=== PATIENT | female | born 1945 | race Caucasian/White ===

== ENCOUNTER → 2017-01-02 | Outpatient (CLI) | payer MEDICARE, OTHER ==
[~2017-01-02] MED LIST: ACYC400T4 PO; ALLO300T PO; ALPR0.5T6 PO; AMLO5TAB2 PO; ASCO500T8 PO; ASPI325T17 PO; CHOL200074 PO; DIAZ5TAB4 PO; DULO60CA7 PO; ENOX40SY4 SQ; HYDR-3237 PO; HYDR2TAB29 PO; LEVO750T26 PO; MAGN400O7 PO; MAGNESIUM SUPPLEMENT PEG; METR500T PO; NIAC100T3 PO; NIAC500T4 PO; OXYC-307 PO; OXYC15TA60 PO; OXYGEN INH; PREG150C PO; PROP80TA PO; SULF1TAB24 PO; ZOLP10TA5 PO; will bring list
== END | disposition home or self-care (01) ==
LOC: CFH 10:37
PROVIDERS: ATTEND Nurse Practitioner Family
DX: Z12.31 Encounter for screening mammogram for malignant neoplasm of breast (principal)
CPT/HCPCS: G0202

== ENCOUNTER → 2017-01-03 | Outpatient (CLI) | payer MEDICARE, OTHER | END | disposition home or self-care (01) | LOC: CFH 12:00 | PROVIDERS: ATTEND Nurse Practitioner Family | DX: Z13.820 Encounter for screening for osteoporosis (principal); M81.0 Age-related osteoporosis without current pathological fracture | CPT/HCPCS: 77080 ==

== ENCOUNTER → 2017-02-06 | Outpatient (CLI) | payer MEDICARE, OTHER ==
[~2017-02-06] MED LIST changes: +AMINOPHYLLINE 25 MG/ML, 10ML ONE; +REGADENOSON 0.4 MG/5 ML SYRINGE ONE
== END | disposition home or self-care (01) ==
LOC: CFH 07:15
PROVIDERS: ATTEND Internal Medicine Cardiovascular Disease
DX: I08.3 Combined rheumatic disorders of mitral, aortic and tricuspid valves (principal); I10 Essential (primary) hypertension
CPT/HCPCS: 78452; 93017; 93306; A9502; J0280; J2785

== ENCOUNTER 2017-09-07 16:16 | Inpatient (IN) | payer MEDICARE, OTHER ==
[~2017-09-07] VITALS: Ht 162.6 cm; Wt 97.4 kg
[~2017-09-07 16:16] MED LIST changes: -AMINOPHYLLINE 25 MG/ML, 10ML ONE; -REGADENOSON 0.4 MG/5 ML SYRINGE ONE
[2017-09-07 16:54] LABS: BASOPHILS # (AUTO) 0.04 x10^3/uL (0-0.1); BASOPHILS % (AUTO) 0 % (0-1); EOSINOPHILS # (AUTO) 0.07 x10^3/uL (0-0.4); EOSINOPHILS % (AUTO) 1 % (1-7); LYMPHOCYTES # (AUTO) 2.37 x10^3/uL (1-3.4); LYMPHOCYTES % (AUTO) 17 % (22-44); MD NO; MEAN CORPUSCULAR HEMOGLOBIN 29.2 pg (27.0-34.8); MEAN CORPUSCULAR HGB CONC 33.4 g/dL (32.4-35.8); MEAN CORPUSCULAR VOLUME 87.4 fL (80-100); MEAN PLATELET VOLUME 8.1 fL (7.4-10.4); MONOCYTES # (AUTO) 0.84 x10^3/uL (0.2-0.8); MONOCYTES % (AUTO) 6 % (2-9); NEUTROPHILS # (AUTO) 10.48 x10^3/uL (1.8-6.8); NEUTROPHILS % (AUTO) 76 % (42-75); PLATELET COUNT 294 x10^3/uL (130-400); RED BLOOD COUNT 5.58 x10^6/uL (3.82-5.3); RED CELL DISTRIBUTION WIDTH 14.4 % (9.6-15.2)
[2017-09-07] MEDS ORDERED: LIDOCAINE-MPF 1%, 5ML ONE (17:39)
[2017-09-07] MEDS ORDERED: SODIUM CHLORIDE FLUSH 10ML SYR IVF ONE (18:30)
[2017-09-07 18:54] LABS: ALANINE AMINOTRANSFERASE 20 U/L (12-78); ALBUMIN 3.8 g/dL (3.4-5.0); ANION GAP 10 mmol/L (5-15); CALCIUM 9.9 mg/dL (8.5-10.1); CHLORIDE 106 mmol/L (98-107); CREATININE 1.36 mg/dL (0.55-1.02)
[2017-09-07 18:56] LABS: ALKALINE PHOSPHATASE 86 U/L (45-117); BILIRUBIN,TOTAL 0.6 mg/dL (0.2-1.0); TOTAL PROTEIN 8.1 g/dL (6.4-8.2)
[2017-09-07] MEDS ORDERED: OXYcodone/APAP 5/325MG TABLET PO ONE (19:30)
[2017-09-07] MEDS ORDERED: NIAC500T10 PO (19:38)
[2017-09-07] MEDS ORDERED: CHOL200024 PO (19:38)
[2017-09-07] MEDS ORDERED: POLYETHYLENE GLYCOL 17 GM PACKET PO PRN (20:00)
[2017-09-07] MEDS ORDERED: LABETALOL 5MG/ML, 20ML IVPush PRN (20:00)
[2017-09-07] MEDS ORDERED: FENTANYL PF 100 MCG/2ML IVPush PRN (20:00)
[2017-09-07] MEDS ORDERED: DOCUSATE 100 MG CAPSULE PO PRN (20:00)
[2017-09-07] MEDS ORDERED: BISACODYL 10 MG SUPP PR PRN (20:00)
[2017-09-07] MEDS ORDERED: ONDANSETRON 2MG/ML, 2ML IVPush PRN (20:00)
[2017-09-07 20:04] LABS: HCT (SEDRATE) 48.8 % (34.6-47.8)
[2017-09-07] MEDS ORDERED: OXYcodone/APAP 5/325MG TABLET ONE (20:10)
[2017-09-07 21:30] VITALS: BP 137/85
[2017-09-07] MEDS: ALLOPURINOL 300 MG TABLET PO SCH (22:13)
[2017-09-07] MEDS: SODIUM CHLORIDE FLUSH 10ML SYR IVF SCH (22:14)
[2017-09-08] MEDS: ACETAMINOPHEN 325 MG TABLET PO PRN ×4 (00:22→21:59)
[2017-09-08 02:25] VITALS: BP 104/67
[2017-09-08 05:29] LABS: BASOPHILS # (AUTO) 0.15 x10^3/uL (0-0.1); BASOPHILS % (AUTO) 1 % (0-1); EOSINOPHILS # (AUTO) 0.12 x10^3/uL (0-0.4); EOSINOPHILS % (AUTO) 1 % (1-7); LYMPHOCYTES # (AUTO) 3.56 x10^3/uL (1-3.4); LYMPHOCYTES % (AUTO) 27 % (22-44); MD NO; MEAN CORPUSCULAR HEMOGLOBIN 28.8 pg (27.0-34.8); MEAN CORPUSCULAR HGB CONC 32.9 g/dL (32.4-35.8); MEAN CORPUSCULAR VOLUME 87.4 fL (80-100); MONOCYTES # (AUTO) 1.08 x10^3/uL (0.2-0.8); MONOCYTES % (AUTO) 8 % (2-9); NEUTROPHILS # (AUTO) 8.39 x10^3/uL (1.8-6.8); NEUTROPHILS % (AUTO) 63 % (42-75); PLATELET COUNT 268 x10^3/uL (130-400); RED BLOOD COUNT 5.09 x10^6/uL (3.82-5.3); RED CELL DISTRIBUTION WIDTH 14.4 % (9.6-15.2)
[2017-09-08 05:41] LABS: ANION GAP 6 mmol/L (5-15); CALCIUM 9.1 mg/dL (8.5-10.1); CHLORIDE 105 mmol/L (98-107)
[2017-09-08 05:44] LABS: CREATININE 1.05 mg/dL (0.55-1.02)
[2017-09-08 07:26] VITALS: BP 147/87
[2017-09-08 08:07] LABS: MICROSCOPIC AUTO
[2017-09-08] MEDS: CHOLECALCIFEROL 1,000 UNIT TABLET PO SCH (10:20)
[2017-09-08] MEDS: PROPRANOLOL 40 MG TABLET PO SCH (10:21)
[2017-09-08] MEDS: NIACIN 500 MG TABLET.ER PO SCH (10:21)
[2017-09-08] MEDS: AMLODIPINE 5 MG TABLET PO SCH (10:21)
[2017-09-08] MEDS: SODIUM CHLORIDE FLUSH 10ML SYR IVF SCH ×2 (10:21→21:59)
[2017-09-08] MEDS ORDERED: PHENAZOPYRIDINE 200 MG TABLET PO PRN (11:30)
[2017-09-08 12:14] LABS: HEMOGLOBIN A1C 6.1 % (4.2-6.3)
[2017-09-08] MEDS: CEFDINIR 300 MG CAPSULE PO SCH ×2 (12:33→21:59)
[2017-09-08] MEDS: TAMSULOSIN 0.4 MG CAP.ER.24H PO SCH (12:33)
[2017-09-08 13:44] VITALS: BP 105/69
[2017-09-08 19:22] VITALS: BP 113/62
[2017-09-08] MEDS ORDERED: 0.9126SP NAS (21:51)
[2017-09-08] MEDS ORDERED: CYCL1DRO EACHEYE (21:51)
[2017-09-08] MEDS: ALLOPURINOL 300 MG TABLET PO SCH (21:58)
[2017-09-09 03:37] VITALS: BP 99/68
[2017-09-09 04:06] VITALS: BP 114/70
[2017-09-09 07:20] VITALS: BP 94/62
[2017-09-09 09:17] LABS: BASOPHILS # (AUTO) 0.05 x10^3/uL (0-0.1); BASOPHILS % (AUTO) 0 % (0-1); EOSINOPHILS # (AUTO) 0.08 x10^3/uL (0-0.4); EOSINOPHILS % (AUTO) 1 % (1-7); LYMPHOCYTES # (AUTO) 2.86 x10^3/uL (1-3.4); LYMPHOCYTES % (AUTO) 24 % (22-44); MD NO; MEAN CORPUSCULAR HEMOGLOBIN 28.9 pg (27.0-34.8); MEAN CORPUSCULAR HGB CONC 33.1 g/dL (32.4-35.8); MEAN CORPUSCULAR VOLUME 87.3 fL (80-100); MONOCYTES # (AUTO) 1.04 x10^3/uL (0.2-0.8); MONOCYTES % (AUTO) 9 % (2-9); NEUTROPHILS # (AUTO) 8.02 x10^3/uL (1.8-6.8); NEUTROPHILS % (AUTO) 67 % (42-75); PLATELET COUNT 255 x10^3/uL (130-400); RED BLOOD COUNT 4.91 x10^6/uL (3.82-5.3); RED CELL DISTRIBUTION WIDTH 14.7 % (9.6-15.2)
[2017-09-09 09:26] LABS: ANION GAP 7 mmol/L (5-15); CALCIUM 8.6 mg/dL (8.5-10.1); CHLORIDE 103 mmol/L (98-107); CREATININE 0.99 mg/dL (0.55-1.02)
[2017-09-09] MEDS: AMLODIPINE 5 MG TABLET PO SCH (09:41)
[2017-09-09] MEDS: SODIUM CHLORIDE FLUSH 10ML SYR IVF SCH ×2 (09:41→22:21)
[2017-09-09] MEDS: NIACIN 500 MG TABLET.ER PO SCH (09:41)
[2017-09-09] MEDS: CHOLECALCIFEROL 1,000 UNIT TABLET PO SCH (09:41)
[2017-09-09] MEDS: CEFDINIR 300 MG CAPSULE PO SCH ×2 (09:41→22:19)
[2017-09-09] MEDS: TAMSULOSIN 0.4 MG CAP.ER.24H PO SCH (09:41)
[2017-09-09] MEDS: PROPRANOLOL 40 MG TABLET PO SCH (09:41)
[2017-09-09] MEDS ORDERED: POTASSIUM CHLORIDE 20 MEQ TAB.ER.PRT PO ONE (10:00)
[2017-09-09 13:08] VITALS: BP 99/71
[2017-09-09 20:02] VITALS: BP 103/70
[2017-09-09] MEDS: ALLOPURINOL 300 MG TABLET PO SCH (22:19)
[2017-09-10] VITALS (11 sets, daily range): BP systolic 79–124; BP diastolic 56–88
[2017-09-10] MEDS: CHOLECALCIFEROL 1,000 UNIT TABLET PO SCH (08:51)
[2017-09-10] MEDS: NIACIN 500 MG TABLET.ER PO SCH (08:51)
[2017-09-10] MEDS: TAMSULOSIN 0.4 MG CAP.ER.24H PO SCH (08:51)
[2017-09-10] MEDS: CEFDINIR 300 MG CAPSULE PO SCH ×2 (08:51→20:11)
[2017-09-10] MEDS: PROPRANOLOL 40 MG TABLET PO SCH (08:53)
[2017-09-10] MEDS: SODIUM CHLORIDE FLUSH 10ML SYR IVF SCH ×2 (08:54→20:11)
[2017-09-10] MEDS ORDERED: AMLODIPINE 2.5 MG TABLET PO SCH (09:00)
[2017-09-10] MEDS: SODIUM CHLORIDE 0.9% 1,000 ML IV SCH (15:07)
[2017-09-10] MEDS ORDERED: SODIUM CHLORIDE 0.9%, 500ML IVBOLUS ONE (17:30)
[2017-09-10] MEDS: ALLOPURINOL 300 MG TABLET PO SCH (20:11)
[2017-09-11] VITALS (11 sets, daily range): BP systolic 95–140; BP diastolic 67–94
[2017-09-11] MEDS: SODIUM CHLORIDE 0.9% 1,000 ML IV SCH (03:07)
[2017-09-11 05:16] LABS: BASOPHILS # (AUTO) 0.05 x10^3/uL (0-0.1); BASOPHILS % (AUTO) 0 % (0-1); EOSINOPHILS # (AUTO) 0.15 x10^3/uL (0-0.4); EOSINOPHILS % (AUTO) 1 % (1-7); LYMPHOCYTES # (AUTO) 2.48 x10^3/uL (1-3.4); LYMPHOCYTES % (AUTO) 24 % (22-44); MD NO; MEAN CORPUSCULAR HEMOGLOBIN 29.1 pg (27.0-34.8); MEAN CORPUSCULAR HGB CONC 33.4 g/dL (32.4-35.8); MEAN CORPUSCULAR VOLUME 87.1 fL (80-100); MEAN PLATELET VOLUME 8.2 fL (7.4-10.4); MONOCYTES # (AUTO) 0.82 x10^3/uL (0.2-0.8); MONOCYTES % (AUTO) 8 % (2-9); NEUTROPHILS # (AUTO) 7.06 x10^3/uL (1.8-6.8); NEUTROPHILS % (AUTO) 67 % (42-75); PLATELET COUNT 226 x10^3/uL (130-400); RED BLOOD COUNT 4.35 x10^6/uL (3.82-5.3); RED CELL DISTRIBUTION WIDTH 14.2 % (9.6-15.2)
[2017-09-11 05:26] LABS: ALANINE AMINOTRANSFERASE 13 U/L (12-78); ALBUMIN 2.6 g/dL (3.4-5.0); ANION GAP 8 mmol/L (5-15); CALCIUM 8.6 mg/dL (8.5-10.1); CHLORIDE 107 mmol/L (98-107); CREATININE 0.79 mg/dL (0.55-1.02)
[2017-09-11 05:28] LABS: ALKALINE PHOSPHATASE 62 U/L (45-117); BILIRUBIN,TOTAL 0.7 mg/dL (0.2-1.0); TOTAL PROTEIN 6.2 g/dL (6.4-8.2)
[2017-09-11] MEDS: SODIUM CHLORIDE FLUSH 10ML SYR IVF SCH ×2 (09:58→20:41)
[2017-09-11] MEDS: CEFDINIR 300 MG CAPSULE PO SCH ×2 (09:59→20:42)
[2017-09-11] MEDS: NIACIN 500 MG TABLET.ER PO SCH (09:59)
[2017-09-11] MEDS: CHOLECALCIFEROL 1,000 UNIT TABLET PO SCH (09:59)
[2017-09-11] MEDS: LACTATED RINGERS 1,000 ML IV SCH ×2 (11:05→20:42)
[2017-09-11] MEDS: METOPROLOL TARTRATE 25 MG TABLET PO SCH ×2 (11:06→18:20)
[2017-09-11] MEDS: ARTIFICIAL TEARS 15 DROP/ML BOTTLE EACHEYE PRN (20:42)
[2017-09-11] MEDS: ALLOPURINOL 300 MG TABLET PO SCH (20:42)
[2017-09-11] MEDS: RESTASIS OP SCH (20:45)
[2017-09-11] MEDS: OPTHALMIC OP SCH (20:45)
[2017-09-11] MEDS: SODIUM CHLORIDE NASAL SPRAY 45ML BOTTLE NAS PRN (20:52)
[2017-09-12] VITALS (9 sets, daily range): BP systolic 98–141; BP diastolic 61–91
[2017-09-12] MEDS: LACTATED RINGERS 1,000 ML IV SCH ×2 (05:07→19:44)
[2017-09-12] MEDS: METOPROLOL TARTRATE 25 MG TABLET PO SCH ×2 (05:07→17:11)
[2017-09-12 05:16] LABS: BASOPHILS # (AUTO) 0.03 x10^3/uL (0-0.1); BASOPHILS % (AUTO) 0 % (0-1); EOSINOPHILS # (AUTO) 0.13 x10^3/uL (0-0.4); EOSINOPHILS % (AUTO) 2 % (1-7); LYMPHOCYTES # (AUTO) 2.58 x10^3/uL (1-3.4); LYMPHOCYTES % (AUTO) 30 % (22-44); MD NO; MEAN CORPUSCULAR HEMOGLOBIN 29.2 pg (27.0-34.8); MEAN CORPUSCULAR HGB CONC 33.5 g/dL (32.4-35.8); MEAN CORPUSCULAR VOLUME 87.3 fL (80-100); MEAN PLATELET VOLUME 8.2 fL (7.4-10.4); MONOCYTES % (AUTO) 9 % (2-9); NEUTROPHILS # (AUTO) 5.16 x10^3/uL (1.8-6.8); NEUTROPHILS % (AUTO) 59 % (42-75); PLATELET COUNT 230 x10^3/uL (130-400); RED BLOOD COUNT 4.14 x10^6/uL (3.82-5.3); RED CELL DISTRIBUTION WIDTH 14.2 % (9.6-15.2)
[2017-09-12 05:19] LABS: ALBUMIN 2.4 g/dL (3.4-5.0); ANION GAP 7 mmol/L (5-15); CALCIUM 8.7 mg/dL (8.5-10.1); CHLORIDE 107 mmol/L (98-107); CREATININE 0.75 mg/dL (0.55-1.02)
[2017-09-12 05:29] LABS: FREE T4 (FREE THYROXINE) 1.37 ng/dL (0.76-1.46)
[2017-09-12] MEDS ORDERED: MAGNESIUM SULFATE PMX 2GM/50ML 50 ML IV ONE (08:30)
[2017-09-12] MEDS: RESTASIS OP SCH ×2 (09:00→21:00)
[2017-09-12] MEDS: OPTHALMIC OP SCH ×2 (09:00→21:00)
[2017-09-12] MEDS: AMOXICILLIN/CLAV 875-125MG TABLET PO SCH ×2 (09:03→22:09)
[2017-09-12] MEDS: SODIUM CHLORIDE FLUSH 10ML SYR IVF SCH ×2 (09:03→19:44)
[2017-09-12] MEDS: NIACIN 500 MG TABLET.ER PO SCH (09:03)
[2017-09-12] MEDS: CHOLECALCIFEROL 1,000 UNIT TABLET PO SCH (09:03)
[2017-09-12] MEDS: SODIUM CHLORIDE NASAL SPRAY 45ML BOTTLE NAS PRN (09:19)
[2017-09-12] MEDS: ARTIFICIAL TEARS 15 DROP/ML BOTTLE EACHEYE PRN ×2 (09:20→22:10)
[2017-09-12] MEDS: ALLOPURINOL 300 MG TABLET PO SCH (22:09)
[2017-09-13] VITALS (9 sets, daily range): BP systolic 103–153; BP diastolic 63–99
[2017-09-13] MEDS: LACTATED RINGERS 1,000 ML IV SCH ×3 (03:42→21:20)
[2017-09-13] MEDS: METOPROLOL TARTRATE 25 MG TABLET PO SCH ×2 (05:14→18:14)
[2017-09-13 05:27] LABS: BASOPHILS # (AUTO) 0.03 x10^3/uL (0-0.1); BASOPHILS % (AUTO) 0 % (0-1); EOSINOPHILS # (AUTO) 0.16 x10^3/uL (0-0.4); EOSINOPHILS % (AUTO) 2 % (1-7); LYMPHOCYTES # (AUTO) 3.12 x10^3/uL (1-3.4); LYMPHOCYTES % (AUTO) 30 % (22-44); MD NO; MEAN CORPUSCULAR HEMOGLOBIN 28.8 pg (27.0-34.8); MEAN CORPUSCULAR VOLUME 87.2 fL (80-100); MEAN PLATELET VOLUME 8.3 fL (7.4-10.4); MONOCYTES # (AUTO) 0.96 x10^3/uL (0.2-0.8); MONOCYTES % (AUTO) 9 % (2-9); NEUTROPHILS # (AUTO) 6.29 x10^3/uL (1.8-6.8); NEUTROPHILS % (AUTO) 60 % (42-75); PLATELET COUNT 281 x10^3/uL (130-400); RED BLOOD COUNT 4.34 x10^6/uL (3.82-5.3); RED CELL DISTRIBUTION WIDTH 14.4 % (9.6-15.2)
[2017-09-13 05:29] LABS: ALBUMIN 2.6 g/dL (3.4-5.0); ANION GAP 8 mmol/L (5-15); CHLORIDE 106 mmol/L (98-107)
[2017-09-13 05:34] LABS: ALANINE AMINOTRANSFERASE 13 U/L (12-78); ALKALINE PHOSPHATASE 65 U/L (45-117); BILIRUBIN,TOTAL 0.6 mg/dL (0.2-1.0); CALCIUM 8.8 mg/dL (8.5-10.1); CREATININE 0.75 mg/dL (0.55-1.02); TOTAL PROTEIN 6.1 g/dL (6.4-8.2)
[2017-09-13] MEDS: NIACIN 500 MG TABLET.ER PO SCH (08:32)
[2017-09-13] MEDS: ARTIFICIAL TEARS 15 DROP/ML BOTTLE EACHEYE PRN ×3 (08:32→21:20)
[2017-09-13] MEDS: CHOLECALCIFEROL 1,000 UNIT TABLET PO SCH (08:33)
[2017-09-13] MEDS: AMOXICILLIN/CLAV 875-125MG TABLET PO SCH ×2 (08:34→21:18)
[2017-09-13] MEDS: OPTHALMIC OP SCH ×2 (08:34→21:00)
[2017-09-13] MEDS: SODIUM CHLORIDE FLUSH 10ML SYR IVF SCH ×2 (08:34→21:20)
[2017-09-13] MEDS: RESTASIS OP SCH ×2 (08:34→21:00)
[2017-09-13] MEDS: SODIUM CHLORIDE NASAL SPRAY 45ML BOTTLE NAS PRN (08:44)
[2017-09-13] MEDS ORDERED: COSYNTROPIN 0.25 MG IM ONE (12:00)
[2017-09-13] MEDS ORDERED: RISE35TA12 PO (12:30)
[2017-09-13] MEDS ORDERED: METOPROLOL TARTRATE 25 MG TABLET PO ONE (14:00)
[2017-09-13] MEDS ORDERED: HYDROCORTISONE 20 MG TABLET PO ONE (16:00)
[2017-09-13] MEDS: ALLOPURINOL 300 MG TABLET PO SCH (21:18)
[2017-09-14 01:21] VITALS: BP 123/81
[2017-09-14] MEDS: LACTATED RINGERS 1,000 ML IV SCH (06:02)
[2017-09-14] MEDS: METOPROLOL TARTRATE 25 MG TABLET PO SCH (06:06)
[2017-09-14] MEDS ORDERED: RISEDRONATE 35 MG PO SCH (07:00)
[2017-09-14 07:48] VITALS: BP 134/85
[2017-09-14] MEDS ORDERED: METO25TA35 PO (08:21)
[2017-09-14] MEDS ORDERED: PRED10TA PO (08:24)
[2017-09-14] MEDS ORDERED: AMOX1TAB64 PO (08:28)
[2017-09-14] MEDS ORDERED: HYDROCORTISONE 10 MG TABLET PO SCH (08:30)
[2017-09-14] MEDS ORDERED: HYDROCORTISONE 20 MG TABLET ONE (08:47)
[2017-09-14] MEDS: SODIUM CHLORIDE FLUSH 10ML SYR IVF SCH (08:49)
[2017-09-14] MEDS: CHOLECALCIFEROL 1,000 UNIT TABLET PO SCH (08:50)
[2017-09-14] MEDS: AMOXICILLIN/CLAV 875-125MG TABLET PO SCH (08:50)
[2017-09-14] MEDS: NIACIN 500 MG TABLET.ER PO SCH (08:50)
[2017-09-14] MEDS: OPTHALMIC OP SCH (08:50)
[2017-09-14] MEDS: RESTASIS OP SCH (08:50)
[2017-09-14] MEDS: SODIUM CHLORIDE NASAL SPRAY 45ML BOTTLE NAS PRN (08:50)
== END 2017-09-14 11:35 | disposition home health service (06) | DRG 564 ==
LOC: ED 18:32 → EDIP 19:10 → 4NOR 20:51 → 4WST 09-10 13:28
PROVIDERS: ADMIT Hospitalist; ATTEND Hospitalist
PROC: 0S9D3ZZ Drainage of Left Knee Joint, Percutaneous Approach (ICD-10-PCS; 2017-09-07)
PROC: 0T9B70Z Drainage of Bladder with Drainage Device, Via Natural or Artificial Opening (ICD-10-PCS; principal; 2017-09-08)
PROC: 0SJD3ZZ Inspection of Left Knee Joint, Percutaneous Approach (ICD-10-PCS; 2017-09-08)
DX: M25.462 Effusion, left knee (principal); N17.0 Acute kidney failure with tubular necrosis; M25.062 Hemarthrosis, left knee; E27.40 Unspecified adrenocortical insufficiency; E66.01 Morbid (severe) obesity due to excess calories; G90.8 Other disorders of autonomic nervous system; N39.0 Urinary tract infection, site not specified; F41.9 Anxiety disorder, unspecified; B95.2 Enterococcus as the cause of diseases classified elsewhere; R73.9 Hyperglycemia, unspecified; F32.9 Major depressive disorder, single episode, unspecified; M10.9 Gout, unspecified; R70.0 Elevated erythrocyte sedimentation rate; E74.39 Other disorders of intestinal carbohydrate absorption; G89.29 Other chronic pain; I11.9 Hypertensive heart disease without heart failure; M17.12 Unilateral primary osteoarthritis, left knee; J32.9 Chronic sinusitis, unspecified; Z82.49 Family history of ischemic heart disease and other diseases of the circulatory system; Z83.3 Family history of diabetes mellitus; Z86.73 Personal history of transient ischemic attack (TIA), and cerebral infarction without residual deficits; Z68.36 Body mass index [BMI] 36.0-36.9, adult; Z90.49 Acquired absence of other specified parts of digestive tract; Z90.89 Acquired absence of other organs; Z79.899 Other long term (current) drug therapy
CPT/HCPCS: 36415; 70450; 80048; 80053; 81001; 82040; 82533; 82962; 83036; 83735; 84100; 84439; 84443; 84550; 85025; 85651; 86140; 87077; 87086; 87186; 93005; 93306; 99285; J0834; J3475; J7030; J7040; J7120

== ENCOUNTER → 2018-10-05 | Outpatient (CLI) | payer MEDICARE, OTHER ==
[~2018-10-05] MED LIST changes: +0.9126SP NAS; +AMLO-150 PO; -AMLO5TAB2 PO; +AMOX1TAB64 PO; +CHOL200024 PO; +CYCL1DRO EACHEYE; +METO25TA35 PO; +NIAC500T10 PO; +PRED10TA PO; +RISE35TA12 PO
== END | disposition home or self-care (01) ==
LOC: CFH 11:19
PROVIDERS: ATTEND Nurse Practitioner Family
DX: M81.0 Age-related osteoporosis without current pathological fracture (principal); I08.0 Rheumatic disorders of both mitral and aortic valves; I11.9 Hypertensive heart disease without heart failure; E78.5 Hyperlipidemia, unspecified; Z78.0 Asymptomatic menopausal state
CPT/HCPCS: 77080; 93306

== ENCOUNTER → 2019-10-29 | Outpatient (CLI) | payer MEDICARE, OTHER ==
[~2019-10-29] MED LIST changes: +NIAC-1 PO; +NIAC-17 PO; -NIAC500T10 PO; -NIAC500T4 PO
== END | disposition home or self-care (01) ==
LOC: CFH 10:19
PROVIDERS: ATTEND Internal Medicine Cardiovascular Disease
DX: Z13.6 Encounter for screening for cardiovascular disorders (principal); I35.8 Other nonrheumatic aortic valve disorders; I10 Essential (primary) hypertension; I25.10 Atherosclerotic heart disease of native coronary artery without angina pectoris; I34.0 Nonrheumatic mitral (valve) insufficiency
CPT/HCPCS: 75571; 93306

== ENCOUNTER → 2020-01-19 | Outpatient (CLI) | payer MEDICARE, OTHER ==
[~2020-01-19] MED LIST changes: +AMINOPHYLLINE 25 MG/ML, 10ML ONE; -NIAC-1 PO; +NIAC-27 PO; -NIAC100T3 PO; +REGADENOSON 0.4 MG/5 ML SYRINGE ONE; +[UNRECOGNIZED DRUG - CODE] PO
== END | disposition home or self-care (01) ==
LOC: CFH 12:31
PROVIDERS: ATTEND Internal Medicine Cardiovascular Disease
DX: Z12.31 Encounter for screening mammogram for malignant neoplasm of breast (principal); I25.10 Atherosclerotic heart disease of native coronary artery without angina pectoris; I25.9 Chronic ischemic heart disease, unspecified
CPT/HCPCS: 77067; 78452; 93017; A9502; J0280; J2785